=== PATIENT | female | born 1990 | race American Indian/Alaskan Native ===

== ENCOUNTER 2019-07-28 10:43 | Outpatient (CLI) | payer MEDICAID ==
[2019-07-28] MEDS ORDERED: ACETAMINOPHEN W/CODEINE 300-30 MG TAB PO ONE (16:00)
[2019-07-28 16:07] VITALS: BP 111/59
== END 2019-07-28 16:25 | disposition home or self-care (01) ==
LOC: TRG 10:43
PROVIDERS: ATTEND Obstetrics & Gynecology
DX: O47.1 False labor at or after 37 completed weeks of gestation (principal); Z3A.37 37 weeks gestation of pregnancy
CPT/HCPCS: Q0177

== ENCOUNTER 2019-07-31 10:25 | Outpatient (CLI) | payer MEDICAID ==
[2019-07-31 11:10] VITALS: BP 121/75
--- NOTE | 2019-07-31 12:27 | Ultrasound Report ---
ULTRASOUND BIOPHYSICAL PROFILE INDICATION: decreased movement. COMPARISON: 07/30/2019 FINDINGS: heart rate is 146 beats per minute. breathing movement = 2 Gross body movement = 2 tone = 2 Qualitative amniotic fluid volume = 2 IMPRESSION: biophysical profile = 04/25 Signer Name: Lorenzo Candelario Jr, MD Signed: 07/31/2019 12:23 PM Workstation Name: [id number]
== END 2019-07-31 12:20 | disposition home or self-care (01) ==
LOC: TRG 10:25
PROVIDERS: ATTEND Obstetrics & Gynecology
DX: O47.1 False labor at or after 37 completed weeks of gestation (principal); Z3A.37 37 weeks gestation of pregnancy
CPT/HCPCS: 59025; 76819; 82962

== ENCOUNTER 2019-07-31 15:01 | Inpatient (IN) | payer MEDICAID ==
[2019-07-31] MEDS ORDERED: fentaNYL 100 MCG/2 ML INJ ONE (16:14)
[2019-07-31] MEDS ORDERED: fentaNYL 100 MCG/2 ML INJ IV PRN (16:30)
[2019-07-31] MEDS ORDERED: TERBUTALINE 1 MG/1 ML INJ IVP PRN (16:30)
[2019-07-31] MEDS ORDERED: ePHEDrine SULFATE 50 MG/1 ML INJ IV PRN ×2 (16:30→17:36)
[2019-07-31] MEDS ORDERED: MINERAL OIL 30 ML ORAL LIQD PO PRN (16:30)
[2019-07-31] MEDS ORDERED: LIDOCAINE (2%) 20 MG/1 ML VIAL 20 ML MDV INFILTRATI ONE (16:30)
[2019-07-31] MEDS ORDERED: PROMETHAZINE 25 MG TAB PO PRN ×2 (16:30→19:11)
[2019-07-31] MEDS ORDERED: NALOXONE 0.4 MG/1 ML INJ IV PRN (16:30)
[2019-07-31] MEDS ORDERED: BUTORPHANOL 2 MG/1 ML INJ IV PRN (16:30)
[2019-07-31] MEDS ORDERED: TERBUTALINE 1 MG/1 ML INJ SUB-Q PRN (16:30)
[2019-07-31 16:43] LABS: Hemoglobin 11.9 gm/dl (10.1-14.3); Mean Corpuscular HGB Conc 34 % (30-34); Mean Corpuscular Volume 92 fl (79-97); Platelet Count 141 K/mm3 (140-440); Red Blood Count 3.83 M/mm3 (3.65-5.03); Red Cell Distribution Width 15.6 % (13.2-15.2)
[2019-07-31] MEDS ORDERED: OXYTOCIN DRIP 30 UNITS/500 ML BAG IV SCH ×2 (17:00)
[2019-07-31] MEDS ORDERED: OXYTOCIN 20 UNIT/1000ML DRIP 20 UNITS/1,000 ML BAG IV SCH (17:00)
[2019-07-31] MEDS ORDERED: LACTATED RINGERS 1,000 ML IV SCH (17:00)
[2019-07-31] MEDS ORDERED: NALOXONE 2 MG/2 ML INJ IV PRN (17:36)
--- NOTE | 2019-07-31 17:36 | Anesthesia Consultation ---
Anesthesia Consult and Med Hx Date of service: 07/31/19 - Airway Anesthetic Teeth Evaluation: Good ROM Head & Neck: Adequate Mental/Hyoid Distance: Adequate Mallampati Class: Class II Intubation Access Assessment: Probably Good - Pulmonary Exam CTA: Yes - Cardiac Exam Cardiac Exam: RRR - Pre-Operative Health Status ASA Pre-Surgery Classification: ASA2 Proposed Anesthetic Plan: Epidural - Pulmonary Hx Smoking: No Hx Asthma: No Hx Respiratory Symptoms: No SOB: No COPD: No Home Oxygen Therapy: No Hx Pneumonia: No Hx Sleep Apnea: No - Cardiovascular System Hx Hypertension: No Hx Coronary Artery Disease: No Hx Heart Attack/AMI: No Hx Angina: No Hx Percutaneous Transluminal Coronary Angioplasty (PTCA): No Hx Cardia Arrhythmia: No Hx Pacemaker: No Hx Internal Defibrillator: No Hx Valvular Heart Disease: No Hx Heart Murmur: No Hx Peripheral Vascular Disease: No - Central Nervous System Hx Neuromuscular Disorder: No Hx Seizures: No CVA: No Hx Back Pain: No Hx Psychiatric Problems: No - Gastrointestinal Hx Ulcer: No Hx Gastroesophageal Reflux Disease: No - Endocrine Hx Renal Disease: No Hx End Stage Renal Disease: No Hx Cirrhosis: No Hx Liver Disease: No Hx Insulin Dependent Diabetes: No Hx Non-Insulin Dependent Diabetes: No Hx Thyroid Disease: No Hx Hypothyroidism: No Hx Hyperthyroidism: No - Hematic Hx Anemia: No Hx Sickle Cell Disease: No - Other Systems Hx Alcohol Use: No Hx Substance Use: No Hx Cancer: No Hx Obesity: Yes (BMI 33)
--- NOTE | 2019-07-31 17:59 | History and Physical Report ---
History of Present Illness Date of examination: 07/31/19 Date of admission: 07/31/19 15:02 Chief complaint: Contractions History of present illness: Pt is a 28 yo at 37.6 weeks EGA who presents with regular uterine contractions. She reports positive movement and denies LOF or vaginal bleeding. She has received care with [facility], [facility], and [facility]. Her has been complicated by A1GDM, , pyelectasis, LGA, UTI cured, Chlamydia cured, and anemia. She is GBS negative. 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 History: chlamydia Family/Genetic History: diabetes Social history: no significant social history - Obstetrical History Expected Date of Delivery: 08/15/19 Actual Gestation: 37 Week(s) 6 Day(s) : 3 Para: 1 Hx # Term Pregnancies: 0 Number of Pregnancies: 1 Spontaneous Abortions: 0 Induced : 0 Number of Living Children: 1 Medications and Allergies Allergies Allergy/AdvReac Type Severity Reaction Status Date / Time No Known Allergies Allergy Unverified 07/31/19 16:27 Home Medications Medication Instructions Recorded Confirmed Last Taken Type ALBUTEROL NEB's [Proventil 0.083%] 2.5 mg IH TID PRN 01/03/14 07/31/19 01/02/14 17:00 History Albuterol Sulfate [Ventolin HFA] 2 puff IH Q4H PRN 01/03/14 07/31/19 01/03/14 09:00 History Cetirizine HCl [Children's Allergy 1 mg PO DAILY 01/03/14 07/31/19 01/03/14 09:00 History Relief] Fluticasone Propionate [Flonase] 16 gm NS PRN PRN 01/03/14 07/31/19 01/02/14 08:00 History Active Meds: Active Medications Butorphanol Tartrate (Stadol) 2 mg IV Q2H PRN PRN Reason: Pain , Severe (7-10) Ephedrine Sulfate (Ephedrine Sulfate) 10 mg IV Q2M PRN PRN Reason: Hypotension Ephedrine Sulfate (Ephedrine Sulfate) 10 mg IV Q2M PRN PRN Reason: Hypotension Fentanyl (Sublimaze) 100 mcg IV Q2H PRN PRN Reason: Labor Pain Oxytocin/Sodium Chloride (Pitocin/Ns 20 Unit/1000ml Drip) 20 units in 1,000 mls @ 125 mls/hr IV DIRECT LORENA Oxytocin/Sodium Chloride (Pitocin/Ns 30 Unit/500ml) 30 units in 500 mls @ 1 mls/hr IV TITR LORENA; Protocol Oxytocin/Sodium Chloride (Pitocin/Ns 30 Unit/500ml) 30 units in 500 mls @ 2 mls/hr IV TITR LORENA; Protocol Lactated Ringer's (Lactated Ringers) 1,000 mls @ 125 mls/hr IV DIRECT LORENA Last Admin: 07/31/19 16:10 Dose: 125 mls/hr Documented by: Fentanyl/Bupivacaine/Sodium Chlor (Fentanyl-Bupiv 2 Mcg/Ml-0.125%) 200 mcg in 100 mls @ 12 mls/hr EPIDURAL TITR LORENA; Protocol Mineral Oil (Mineral Oil) 30 ml PO QHS PRN PRN Reason: Constipation Naloxone HCl (Naloxone) 0.1 mg IV Q2MIN PRN PRN Reason: Res Rate </= 8 or 02 SAT < 92% Naloxone HCl (Naloxone) 0.2 mg IV Q5M PRN PRN Reason: Respiratory sedation Promethazine HCl (Phenergan) 25 mg PO Q6H PRN PRN Reason: Nausea And Vomiting Terbutaline Sulfate (Brethine) 0.25 mg SUB-Q ONCE PRN PRN Reason: Hyperstimulation/Hypertonicity Terbutaline Sulfate (Brethine) 0.25 mg IVP ONCE PRN PRN Reason: Hyperstimulation/Hypertonicity Review of Systems All systems: negative - Vital Signs Vital signs: Vital Signs Pulse Pulse Ox 75 100 07/31/19 15:29 07/31/19 15:29 Temp Pulse Resp BP Pulse Ox 97.2 F L 63 133/66 86 07/31/19 16:56 07/31/19 17:51 07/31/19 17:51 07/31/19 17:50 - Physical Exam Lungs: Positive: Normal air movement Abdomen: Positive: soft Genitourinary (Female): Positive: normal external genitalia Vagina: Positive: normal moisture Uterus: Positive: enlarged Anus/Rectum: Positive: normal perianal skin Extremities: Positive: normal - Obstetrical FHR: category 1 Uterine Contraction Monitor Mode: External Cervical Dilatation: 4 Cervical Effacement Percentage: 80 station: -1 Results Result Diagrams: 07/31/19 16:05 Abnormal lab results 07/31/19 Range/Units 16:05 RDW 15.6 H (13.2-15.2) % All other labs normal. Assessment and Plan A: 28 yo at 37.6 weeks EGA Active labor GBS neg A1 GDM Hx Chlamydia this renal pyelectasis Anemia LGA P: Admit to L&D Augment as necessary Epidural as requested Blood glucose q4 hours Anticipate
[2019-07-31] MEDS ORDERED: fentaNYL-BUPIV 2 MCG/ML-0.125% 200 MCG/100 ML BAG EPIDURAL SCH (18:00)
--- NOTE | 2019-07-31 19:10 | Procedure Note ---
OB Delivery Note - Delivery Date of Delivery: 07/31/19 Surgeon: GEOFFREY WARD ([facility]) Estimated blood loss: 100cc - Vaginal Delivery presentation: vertex Delivery position: OA Intrapartum events: PROM->1hr before delivery, meconium, other(please specify) (deep early decelerations) Delivery induction: none Delivery monitor: external FHT, external uterine Route of delivery: Delivery placenta: spontaneous Delivery cord: nuchal cord, 3 umbilical vessels Episiotomy: none Delivery laceration: none Anesthesia: epidural Delivery comments: Excellent maternal effort progressed to of viable male infant. Head delivered OA, restituted LOT after extension and flexion of legs. Copious meconium-stained fluid wiped from 's face. Shoulders followed with gentle guidance. Somersaulted through nuchal cord. Infant to maternal abdomen. Bulb suction and stimulated. Cord clamped and cut, to warmer for evaluation by peds team. Placenta delivered spontaneously and intact. EBL 100ml. Fundus firm, no clots expressed. No lacerations noted.
[2019-07-31] MEDS ORDERED: ONDANSETRON 4 MG/2 ML INJ IV PRN (19:11)
[2019-07-31] MEDS ORDERED: diphenhydrAMINE 25 MG CAP PO PRN (19:11)
[2019-07-31] MEDS ORDERED: LANOLIN/ZINC/DIMETHICONE (LANSINOH) 7 GM TP PRN (19:11)
[2019-07-31] MEDS ORDERED: PROMETHAZINE 25 MG RECT SUPP PR PRN (19:11)
[2019-07-31] MEDS ORDERED: WITCH HAZEL/ GLYCERIN PAD TP PRN (19:11)
[2019-07-31] MEDS ORDERED: ACETAMINOPHEN 325 MG TAB PO PRN (19:11)
[2019-07-31] MEDS ORDERED: MAGNESIUM HYDROXIDE (MOM) ORAL LIQD UDC PO PRN (19:11)
[2019-07-31] MEDS: IBUPROFEN 600 MG TAB PO SCH (22:18)
[2019-08-01] MEDS ORDERED: TETANUS,DIPH,PERTUSS(ACELL) VACCINE 0.5 ML SYRINGE IM ONE (06:00)
--- NOTE | 2019-08-01 08:22 | Progress Note ---
Assessment and Plan PPD1 s/p A1 GDM PP H&H pending D/c to home on PPD2 Subjective - Subjective Date of service: 08/01/19 Principal diagnosis: s/p Interval history: Pt is PPD1 s/p Patient reports: appetite normal, voiding normally, pain well controlled, ambulating normally : doing well, nursing well (both), bottle feeding Objective - Vital Signs Latest vital signs: Vital Signs Temp Pulse Resp BP Pulse Ox 08/01/19 02:33 99.0 F 74 18 102/62 99 07/31/19 21:48 98.2 F 65 18 124/64 100 07/31/19 19:52 67 151/69 07/31/19 19:36 81 118/57 07/31/19 19:21 97 H 122/62 07/31/19 19:06 98.7 F 94 H 121/58 07/31/19 18:58 71 123/62 07/31/19 18:55 73 100 07/31/19 18:52 63 79 L 07/31/19 18:51 63 124/63 07/31/19 18:50 62 100 07/31/19 18:45 66 100 07/31/19 18:43 34 L 85 07/31/19 18:40 60 100 07/31/19 18:37 72 121/68 07/31/19 18:23 67 121/54 07/31/19 18:15 62 100 07/31/19 18:08 71 112/69 07/31/19 18:06 64 146/63 07/31/19 17:51 63 133/66 07/31/19 17:50 44 L 86 07/31/19 17:46 66 100 07/31/19 17:44 67 89 07/31/19 17:40 75 100 07/31/19 17:36 70 130/75 07/31/19 17:35 72 163/103 88 07/31/19 17:34 65 73 L 07/31/19 17:31 64 146/85 07/31/19 17:30 76 100 07/31/19 17:29 73 122/60 07/31/19 17:27 72 115/59 07/31/19 17:25 81 118/64 100 07/31/19 17:23 64 125/66 07/31/19 17:22 66 81 L 07/31/19 17:21 75 122/71 07/31/19 17:20 82 99 07/31/19 17:19 77 115/59 07/31/19 17:17 68 132/61 07/31/19 17:15 98 H 143/77 100 07/31/19 17:13 75 142/65 07/31/19 17:11 89 138/64 07/31/19 17:10 83 99 07/31/19 17:09 84 148/70 07/31/19 17:08 106 H 138/82 07/31/19 17:06 66 87 07/31/19 17:05 66 85 07/31/19 16:56 97.2 F L 07/31/19 16:39 78 99 07/31/19 16:34 96 H 98 07/31/19 16:29 88 97 07/31/19 16:24 84 98 07/31/19 16:19 81 99 07/31/19 16:14 84 99 07/31/19 16:09 80 100 07/31/19 16:04 89 100 07/31/19 15:59 97 H 100 07/31/19 15:54 88 100 07/31/19 15:34 96 H 98 07/31/19 15:29 75 100 Intake and Output 07/31/19 08/01/19 08/01/19 23:59 07:59 15:59 Intake Total 240 Balance 240 Intake: Intake, Free Water 240 Other: # Voids Void 200 Weight 184 lb Estimated Blood Loss 100 - Exam Lungs: Present: Normal air movement Abdomen: Present: normal appearance, soft Uterus: Present: firm, fundal height at umbilicus Extremities: Present: normal - Labs Labs: Abnormal lab results 07/31/19 Range/Units 16:05 RDW 15.6 H (13.2-15.2) %
--- NOTE | 2019-08-01 08:24 | Discharge Summary ---
Providers - Providers Date of Admission: 07/31/19 15:02 Date of discharge: 08/02/19 Attending physician: FLOR LUGO Primary care physician: FLOR LUGO Hospitalization Reason for admission: active labor Delivery: Episiotomy: none Laceration: none Other procedures: none complications: none Discharge diagnosis: IUP at term delivered baby: male Hospital course: Pt arrived in active labor and progressed to of viable male . Met discharge criteria on PPD1. Condition at discharge: Good Disposition: DC-01 TO HOME OR SELFCARE Plan - Discharge Medications Prescriptions: Ferrous Sulfate [Ferrous Sulfate 324 MG] 324 mg PO BID #60 tablet. Ibuprofen [Motrin] 600 mg PO Q8H PRN #60 tablet PRN Reason: Pain - Provider Discharge Summary Activity: routine, no sex for 6 weeks, no heavy lifting 4 weeks, no strenuous exercise Diet: routine Instructions: routine Additional instructions: [] Smoking cessation referral if applicable(refer to patient education folder for contact #) [] Refer to [facility] Booklet Call your doctor immediately for: * Fever > 100.5 * Heavy vaginal bleeding ( >1 pad per hour) * Severe persistent headache * Shortness of breath * Reddened, hot, painful area to leg or breast * Drainage or odor from incision. * Keep incision clean and dry at all times and follow doctor's instructions regarding bathing/showering - Follow up plan Follow up: GEOFFREY WARD CNM [Advanced Practice Nurse] - 08/28/19 (Please call to schedule appointment for exam.)
[2019-08-01 08:35] LABS: Hematocrit 29.9 % (30.3-42.9); Hemoglobin 10.1 gm/dl (10.1-14.3)
[2019-08-01] MEDS: IBUPROFEN 600 MG TAB PO SCH (09:15)
[2019-08-02] MEDS: IBUPROFEN 600 MG TAB PO SCH ×2 (00:44→08:40)
[2019-08-02 15:05] VITALS: BP 129/71
== END 2019-08-02 15:27 | disposition home or self-care (01) | DRG 775 ==
LOC: TRG 15:01 → LD 15:02 → TRG 15:09 → LD 15:40 → OB 21:35
PROVIDERS: ADMIT Obstetrics & Gynecology; ATTEND Obstetrics & Gynecology
PROC: 10E0XZZ Delivery of Products of Conception, External Approach (ICD-10-PCS; principal; 2019-07-31)
PROC: 3E0R3BZ Introduction of Anesthetic Agent into Spinal Canal, Percutaneous Approach (ICD-10-PCS; 2019-07-31)
PROC: 00HU33Z Insertion of Infusion Device into Spinal Canal, Percutaneous Approach (ICD-10-PCS; 2019-07-31)
PROC: 3E0234Z Introduction of Serum, Toxoid and Vaccine into Muscle, Percutaneous Approach (ICD-10-PCS; 2019-08-01)
DX: O24.420 Gestational diabetes mellitus in childbirth, diet controlled (principal); Z3A.37 37 weeks gestation of pregnancy; Z37.0 Single live birth; Z23 Encounter for immunization; Z83.3 Family history of diabetes mellitus; Z79.51 Long term (current) use of inhaled steroids; O42.92 Full-term premature rupture of membranes, unspecified as to length of time between rupture and onset of labor; O77.0 Labor and delivery complicated by meconium in amniotic fluid; O69.81X0 Labor and delivery complicated by cord around neck, without compression, not applicable or unspecified; O76 Abnormality in fetal heart rate and rhythm complicating labor and delivery; O99.214 Obesity complicating childbirth
CPT/HCPCS: 36415; 59025; 76815; 76819; 82962; 85014; 85018; 85027; 86850; 86900; 86901; 88307; 96360; 96361; G0378; J2590; J3010; J7120; Q0177